=== PATIENT | female | born 1995 | race Caucasian/White ===

== ENCOUNTER → 2017-02-14 10:42 | Emergency (ER) | payer OTHER ==
[2017-02-14 13:12] VITALS: BP 0/0
== END | disposition left against medical advice (07) ==
LOC: ED 10:42
DX: R10.9 Unspecified abdominal pain (principal); Z53.21 Procedure and treatment not carried out due to patient leaving prior to being seen by health care provider

== ENCOUNTER 2017-05-05 15:04 | Day surgery (SDC) | payer OTHER ==
[2017-05-05] MEDS ORDERED: Buffered Lidocaine 0.9% SYRIN* 5 ML/SYR SYRINGE ONE (15:17)
[2017-05-05] MEDS ORDERED: fentaNYL* 50 MCG/ML 2 ML VIAL (100 MCG VIAL) ONE (16:04)
[2017-05-05] MEDS ORDERED: Lidocaine 2% PF * 5 ML VIAL ONE (16:04)
[2017-05-05] MEDS ORDERED: Chloroprocaine 2%* 20 ML VIAL ONE (16:04)
[2017-05-05] MEDS ORDERED: Propofol* 10 MG/ML 20 ML BTL IV PUSH ONE (16:04)
[2017-05-05] MEDS ORDERED: Dexamethasone IV* 4 MG/ML 1 ML (4 MG) ONE (16:04)
[2017-05-05] MEDS ORDERED: Ketorolac INJ* 30 MG/ML 1 ML VIAL ONE (16:04)
[2017-05-05] MEDS ORDERED: Ondansetron INJ* 2 MG/ML VIAL ONE (16:04)
[2017-05-05] MEDS ORDERED: Midazolam* 1 MG/ML 5 ML VIAL (5 MG) ONE (16:04)
[2017-05-05] MEDS ORDERED: DOXYcycline IV* 100 MG in NS 0.9% 250 ML* 250 ML IVPB ONE (16:30)
[2017-05-05 16:32] LABS: Hematocrit 38 % (35-47); Hemoglobin 12.7 g/dl (12.0-16.0); Mean Corpuscular HGB Conc 33 g/dl (31-36); Mean Corpuscular Hemoglobin 25 pg (27-31); Mean Corpuscular Volume 76 fL (80-97); Mean Platelet Volume 9 um3 (7.4-10.4); Red Blood Count 5.05 10^6/ul (4.0-5.4); Red Cell Distribution Width 13 % (10.5-15); White Blood Count 6.6 10^3/ul (3.5-10.8)
[2017-05-05] MEDS ORDERED: Silver Nitrate/Potassium Nitr* 1 EA STICK ONE (17:14)
[2017-05-05] MEDS ORDERED: oxyCODONE/Acetamin 5/325 MG* TAB PO PRN (17:14)
[2017-05-05] MEDS ORDERED: Ondansetron INJ* 2 MG/ML VIAL IV PRN (17:14)
[2017-05-05] MEDS ORDERED: fentaNYL* 50 MCG/ML 2 ML VIAL (100 MCG VIAL) IV PRN (17:14)
[2017-05-05 19:35] VITALS: BP 116/63
--- NOTE | 2017-05-06 07:37 | OP ---
DATE OF OPERATION: 05/05/17 [facility] DATE OF : [birth year] SURGEON: Tennille Quesada MD ANESTHESIOLOGIST: Javy Cole MD ANESTHESIA: Spinal PRE-OP DIAGNOSIS: Intrauterine gestation, 6 weeks size, missed . POST-OP DIAGNOSIS: Intrauterine gestation, 6 weeks size, missed . OPERATIVE PROCEDURE: Suction D and C. ESTIMATED BLOOD LOSS: Minimal. FLUIDS: Crystalloid. COMPLICATIONS: None. FINDINGS: Products of conception, small uterus. DESCRIPTION OF PROCEDURE: After informed consent was signed, the patient was taken to the operating room where she was given a spinal anesthesia that was found to be adequate. She was prepped and draped in the dorsal lithotomy position in the [facility]. Her bladder was drained of urine. A speculum was then placed into the vagina to expose the cervix. The anterior lip of the cervix was grasped with a single-tooth tenaculum. The cervix was dilated to the size 8, a size 8 curved suction cannula could be inserted. The suction device was then turned on, and products of conception were suctioned from the uterus. When no more products were being received, and there was a gritty texture around the cavity of the uterus, suction cannula was removed. Very minimal bleeding was seen at that time. The tenaculum was removed with good hemostasis with silver nitrate. The speculum was removed from the vagina. The patient was cleaned, placed back in the supine position, removed from the stretcher, and taken to recovery room in stable condition. [id number] #: [id number] MTDD
== END 2017-05-05 20:08 | disposition home or self-care (01) ==
LOC: OR 15:04
PROVIDERS: ATTEND Obstetrics & Gynecology
DX: O02.1 Missed abortion (principal); Z88.0 Allergy status to penicillin; Z88.8 Allergy status to other drugs, medicaments and biological substances; F17.210 Nicotine dependence, cigarettes, uncomplicated
CPT/HCPCS: 36415; 85025; 86850; 86900; 86901; 88305; A9270-GY; J1100; J1885; J2250; J2400; J2405; J2704; J3010

== ENCOUNTER 2017-10-03 23:42 | Emergency (ER) | payer OTHER ==
[2017-10-04 00:52] VITALS: BP 0/0
--- NOTE | 2017-11-16 06:19 | ED ---
Psychiatric Complaint - HPI Summary HPI Summary: Pt arrived ALS by [facility], EMS state they were called for an unresponsive apneic pt. SO states pt took her klonopin tonight and drank some wine then became unresponsive and apneic. Upon EMS arrival pt was responsive but had slurred speech and was very unsteady on christopher feet. Upon arrival to ED pt was uncooperative and unwilling to sit down and got up, bumping into doorway. Pt denies taking any addtl pills tonight, she had x2 klonopin today and small glass of wine. She has no recollection of what SO reported. - History Of Current Complaint Chief Complaint: EDAltMentalStatus Time Seen by Provider: 10/04/17 00:13 Hx Obtained From: EMS Hx From Patient Unobtainable Due To: Other - Agitated and uncooperative. Hx Last Menstrual Period: Currently menstruating Onset/Duration: Sudden Onset Timing: Hours - one Severity Initially: Moderate Severity Currently: Moderate Character: Anxious Associated Signs And Symptoms: Positive: Negative - Allergies/Home Medications Allergies/Adverse Reactions: Allergies Allergy/AdvReac Type Severity Reaction Status Date / Time MS Penicillins [Penicillins] Allergy Intermediate Edema Verified 05/05/17 15:35 PMH/Surg Hx/FS Hx/Imm Hx Endocrine/Hematology History: Denies: Hx Anticoagulant Therapy, Hx Diabetes, Hx Thyroid Disease Cardiovascular History: Denies: Hx Hypertension, Hx Pacemaker/ICD Respiratory History: Denies: Hx Asthma, Hx Chronic Obstructive Pulmonary Disease (COPD) GI History: Denies: Hx Ulcer History: Denies: Hx Renal Disease Sensory History: Denies: Hx Hearing Aid Neurological History: Denies: Hx Dementia, Hx Seizures Psychiatric History: Reports: Hx Anxiety, Hx Depression Denies: Hx Panic Disorder, Hx Substance Abuse Infectious Disease History: No Infectious Disease History: Reports: 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 Denies: Hx Hepatitis, Hx Human Immunodeficiency Virus (HIV), History Other Infectious Disease, Traveled Outside the [place] in Last 30 Days - Family History Known Family History: Positive: None - Social History Alcohol Use: None Substance Use Type: Reports: None Smoking Status (MU): Never Smoked Tobacco Review of Systems Positive: Other - Agitated All Other Systems Reviewed And Are Negative: Yes Physical Exam Triage Information Reviewed: Yes Vital Signs On Initial Exam: Initial Vitals BP 123/77 10/04/17 00:09 Vital Signs Reviewed: Yes Completion Of Physical Exam Limited Due To: Level 5 Diagnostics - Vital Signs Vital Signs Temp Pulse Resp BP Pulse Ox 10/04/17 00:50 -17.7 C 0 0 0/0 0 10/04/17 00:15 36.9 C 130 18 116/80 100 10/04/17 00:11 111 100 10/04/17 00:09 123/77 - Laboratory Lab Statement: Any lab studies that have been ordered have been reviewed, and results considered in the medical decision making process. Course/Dx - Course Course Of Treatment: Pt eloped out of the ED. - Differential Dx/Clinical Impression Provider Diagnosis: Anxiety attack Discharge - Sign-Out/Discharge Documenting (check all that apply): Discharge - Discharge Plan Condition: Stable Disposition: HOME Referrals: Alexx Kimbrough MD [Primary Care Provider] - - Billing Disposition and Condition Condition: STABLE Disposition: HOME
== END 2017-10-04 00:51 | disposition home or self-care (01) ==
LOC: ED 23:42
DX: F41.9 Anxiety disorder, unspecified (principal)
CPT/HCPCS: 99283

== ENCOUNTER 2018-08-04 13:01 | Emergency (ER) | payer OTHER ==
[2018-08-04 13:43] VITALS: BP 121/72
--- NOTE | 2018-08-04 14:34 | UC ---
Respiratory Complaint HPI - HPI Summary HPI Summary: 3 days of fever, sinus congestion, cough, chills, muscle aches. did not get flu shot. one episode of vomiting after gagging on phlegm. - History of Current Complaint Chief Complaint: UCRespiratory Stated Complaint: SINUS ISSUE VOMITING Time Seen by Provider: 08/04/18 14:32 Hx Obtained From: Patient Hx Last Menstrual Period: 08/04/18 ?: No - per pt Onset/Duration: Sudden Onset Pain Intensity: 7 Pain Scale Used: 0-10 Numeric Character: Cough: Nonproductive Aggravating Factors: Nothing Alleviating Factors: Nothing Associated Signs And Symptoms: Positive: Fever, Chills, URI, Nasal Congestion, Sinus Discomfort. Negative: Dyspnea, Wheezing - Allergies/Home Medications Allergies/Adverse Reactions: Allergies Allergy/AdvReac Type Severity Reaction Status Date / Time Penicillins Allergy Edema Verified 08/04/18 13:43 Home Medications: Home Medications Diphenhydra/Phenyleph/Acetamin [Theraflu Expressmax Night Cplt] 1 tab PO ONCE PRN 08/04/18 [History Confirmed 08/04/18] Dm/P-Ephed/Acetaminoph/Doxylam [Sm Nite Time Cold-Flu Liquid] 180 ml PO Q4HR 12/16 [History Confirmed 08/04/18] PMH/Surg Hx/FS Hx/Imm Hx Previously Healthy: Yes Other History Of: Negative For: Anticoagulant Therapy - Surgical History Surgical History: Yes Surgery Procedure, Year, and Place: D&C - Family History Known Family History: Positive: None - Social History Alcohol Use: None Substance Use Type: None Smoking Status (MU): Light Every Day Tobacco Smoker Amount Used/How Often: 4-5cig/day Household Exposure Type: Cigarettes - Immunization History Most Recent Influenza Vaccination: current Most Recent Pneumonia Vaccination: 0 Vaccination Up to Date: Yes Review of Systems All Other Systems Reviewed And Are Negative: Yes Constitutional: Positive: Fever, Chills, Fatigue Skin: Negative: Rash Eyes: Negative: Drainage ENT: Positive: Sore Throat, Ear Ache, Nasal Discharge, Sinus Congestion, Sinus Pain/Tenderness Respiratory: Positive: Cough. Negative: Shortness Of Breath Gastrointestinal: Positive: Vomiting. Negative: Abdominal Pain, Diarrhea Musculoskeletal: Positive: Myalgia, Other: - denies joint swelling. Negative: Arthralgia Neurological: Positive: Headache Physical Exam Triage Information Reviewed: Yes Appearance: Well-Appearing Vital Signs: Initial Vital Signs Temp 100.2 F 08/04/18 13:38 Pulse 92 08/04/18 13:38 Resp 18 08/04/18 13:38 BP 121/72 08/04/18 13:38 Pulse Ox 97 08/04/18 13:38 Vital Signs Reviewed: Yes Eyes: Positive: Conjunctiva Clear ENT: Positive: Pharynx normal, Nasal congestion, TMs normal, Sinus tenderness, Uvula midline. Negative: Tonsillar swelling, Tonsillar exudate Neck: Positive: Supple, Nontender, No Lymphadenopathy Respiratory Exam: Normal Cardiovascular Exam: Normal Neurological: Positive: Alert Skin: Negative: Rashes UC Diagnostic Evaluation - Laboratory O2 Sat by Pulse Oximetry: 97 Respiratory Course/Dx - Course Course Of Treatment: flu like illness over the past 3-4 days. Rapid flu neg. did not get flu shot this yr. good vitals and slight fever. exam unremarkable. comfort measures discussed. - Differential Dx/Diagnosis Provider Diagnosis: Flu-like symptoms Discharge - Sign-Out/Discharge Documenting (check all that apply): Patient Departure All imaging exams completed and their final reports reviewed: No Studies - Discharge Plan Condition: Good Disposition: HOME Patient Education Materials: Viral Syndrome (ED) Referrals: Alexx Kimbrough MD [Primary Care Provider] - Additional Instructions: If not improving please follow up with pcp. - Billing Disposition and Condition Condition: GOOD Disposition: Home
== END 2018-08-04 15:00 | disposition home or self-care (01) ==
LOC: UCEAST 13:01
DX: R50.9 Fever, unspecified (principal); R09.81 Nasal congestion; R05 Cough; M79.10 Myalgia, unspecified site; F17.210 Nicotine dependence, cigarettes, uncomplicated; Z88.0 Allergy status to penicillin
CPT/HCPCS: 99211; G0463

== ENCOUNTER 2019-09-26 15:46 | Emergency (ER) | payer OTHER ==
--- NOTE | 2019-09-26 16:16 | UC ---
Complaint Female HPI - HPI Summary HPI Summary: 24 yo female presents with UTI symptoms. She tells me that for the last 2 days she has had urinary burning, frequency, and bladder pressure. She has had UTIs in the past and states this feels the same. She denies fever, chills, abdominal pain, n/v, flank pain. LMP was first week in aug. - History Of Current Complaint Stated Complaint: URINARY COMPLAINT Time Seen by Provider: 09/26/19 16:14 Hx Obtained From: Patient Hx Last Menstrual Period: 08/04/18 Onset/Duration: Sudden Onset Timing: Constant Severity Initially: Mild Severity Currently: Moderate Pain Intensity: 5 Pain Scale Used: 0-10 Numeric - Allergies/Home Medications Allergies/Adverse Reactions: Allergies Allergy/AdvReac Type Severity Reaction Status Date / Time Penicillins Allergy Edema Verified 09/26/19 16:20 Home Medications: Home Medications Nitrofurantoin Monohyd/M-Cryst [Macrobid 100 mg Capsule] 100 mg PO BID #10 cap 09/26/19 [Rx] PMH/Surg Hx/FS Hx/Imm Hx - Additional Past Medical History Additional PMH: None Other History Of: Negative For: Anticoagulant Therapy - Surgical History Surgical History: Yes Surgery Procedure, Year, and Place: D&C - Family History Known Family History: Positive: None - Social History Occupation: Employed Full-time Lives: With Family Alcohol Use: None Substance Use Type: None Smoking Status (MU): Light Every Day Tobacco Smoker Amount Used/How Often: 4-5cig/day Household Exposure Type: Cigarettes - Immunization History Most Recent Influenza Vaccination: current Most Recent Pneumonia Vaccination: 0 Vaccination Up to Date: Yes Review of Systems All Other Systems Reviewed And Are Negative: No Constitutional: Positive: Negative Skin: Positive: Negative Respiratory: Positive: Negative Cardiovascular: Positive: Negative Gastrointestinal: Positive: Negative Genitourinary: Positive: Dysuria Neurovascular: Positive: Negative Neurological/Mental Status: Positive: Negative Psychological: Positive: Negative Physical Exam - Summary Physical Exam Summary: GENERAL: NAD. WDWN. No pain distress. SKIN: No rashes, sores, lesions, or open wounds. NECK: Supple. Nontender. No lymphadenopathy. CHEST: CTAB. No r/r/w. No accessory muscle use. Breathing comfortably and in no distress. CV: RRR. Pulses intact. Cap refill <2seconds ABDOMEN: Soft. NTTP. No distention or guarding. No CVA tenderness. Bowel sounds present NEURO: Alert. PSYCH: Age appropriate behavior. Triage Information Reviewed: Yes Vital Signs: Vital Signs: Temp Pulse Resp BP Pulse Ox 98.6 F 80 16 98/70 100 09/26/19 16:10 09/26/19 16:10 09/26/19 16:10 09/26/19 16:10 09/26/19 16:10 Laboratory Tests 09/26/19 16:32 POC Urine Color Yellow POC Urine Clarity Clear POC Urine pH 7.0 POC Ur Specif [place] 1.020 POC Urine Protein 1+ A POC Ur Glucose (UA) Negative POC Urine Ketones Negative POC Urine Blood 1+ A POC Urine Nitrite Negative POC Urine Bilirubin Negative POC Urine Urobilinogen 0.2 POC U Leukocyte Esteras Trace A Vital Signs Reviewed: Yes Complaint Female Dx - Course Course Of Treatment: UA as above. Will treat with macrobid and send urine for culture. - Differential Dx/Diagnosis Provider Diagnosis: UTI (urinary tract infection) Discharge ED - Sign-Out/Discharge Documenting (check all that apply): Patient Departure All imaging exams completed and their final reports reviewed: No Studies - Discharge Plan Condition: Stable Disposition: HOME Prescriptions: Nitrofurantoin Monohyd/M-Cryst [Macrobid 100 mg Capsule] 100 mg PO BID #10 cap Patient Education Materials: Urinary Tract Infection in Women (ED) Referrals: Alexx Kimbrough MD [Primary Care Provider] - Additional Instructions: If you develop a fever, shortness of breath, chest pain, new or worsening symptoms - please call your PCP or go to the ED immediately. - Billing Disposition and Condition Condition: STABLE Disposition: Home
[2019-09-26 16:20] VITALS: BP 98/70
== END 2019-09-26 16:59 | disposition home or self-care (01) ==
LOC: UCEAST 15:46
DX: N39.0 Urinary tract infection, site not specified (principal); F17.210 Nicotine dependence, cigarettes, uncomplicated; Z88.0 Allergy status to penicillin
CPT/HCPCS: 81003; 87077; 87086; 87186; 99212; G0463